=== PATIENT | male | born 1985 | race Caucasian/White ===

== ENCOUNTER 2016-10-14 11:27 | Emergency (ER) | payer MEDICARE ==
--- NOTE | 2016-10-14 11:43 | ERPHSYRPT ---
- History of Present Illness Time Seen by Provider: 10/14/16 11:34 Source: patient Exam Limitations: no limitations Physician History: The patient is a 31-year-old male brought in by ambulance from home where he complains of vomiting and severe pain in his right great toe, right ankle, and right knee. 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 He also has a significant history of gout. He states he has typical flareups like this. Today he tripled his morning dose of hydrocortisone from 20 mg to 60 mg and tripled his fludrocortisone from 0.2 mg to 0.6 mg. He normally takes naproxen for flareups in his gout but he is currently out of the naproxen. Timing/Duration: today Severity: moderate Modifying Factors: Improves With: nothing Associated Symptoms: nausea, vomiting, other (joint pain) Allergies/Adverse Reactions: No Known Drug Allergies Allergy (Verified 10/14/16 11:41) Home Medications: Fludrocortisone Acetate 0.2 mg PO QAM 12/26/14 [History] Hydrocortisone 20 mg PO QAM 12/26/14 [History] Allopurinol 100 mg [Zyloprim 100 mg] 100 mg PO DAILY 08/24/15 [History] Colchicine 0.6 mg PO DAILY 08/24/15 [History] Hx Tetanus, Diphtheria Vaccination/Date Given: Yes Hx Influenza Vaccination/Date Given: Yes Hx Pneumococcal Vaccination/Date Given: Yes - Review of Systems Constitutional: No Fever, No Chills Eyes: No Symptoms Ears, Nose, & Throat: No Symptoms Respiratory: No Cough, No Dyspnea Cardiac: No Chest Pain, No Edema, No Syncope Abdominal/Gastrointestinal: Nausea, Vomiting, No Diarrhea Genitourinary Symptoms: No Dysuria Musculoskeletal: Joint Pain, Joint Swelling Skin: No Rash Neurological: No Dizziness, No Focal Weakness, No Sensory Changes Psychological: No Symptoms Endocrine: No Symptoms Hematologic/Lymphatic: No Symptoms Immunological/Allergic: No Symptoms All Other Systems: Reviewed and Negative - Past Medical History Pertinent Past Medical History: Yes Neurological History: No Pertinent History ENT History: No Pertinent History, Other Cardiac History: No Pertinent History Respiratory History: No Pertinent History Endocrine Medical History: Adrenal Insufficiency Musculoskeletal History: No Pertinent History GI Medical History: No Pertinent History History: No Pertinent History Psycho-Social History: No Pertinent History Male Reproductive Disorders: No Pertinent History Other Medical History: PT HAS NO ADRENAL GLANDS PHEOCHROOMOCYTOMA IS ON CHRONIC STEROIDS - Past Surgical History Past Surgical History: Yes Neuro Surgical History: No Pertinent History Cardiac: No Pertinent History Respiratory: No Pertinent History Gastrointestinal: No Pertinent History Genitourinary: No Pertinent History Musculoskeletal: No Pertinent History Male Surgical History: No Pertinent History Other Surgical History: REMOVAL OF ADRENAL GLANDS 10 years old, corneal transplant 2006 ([facility]) - Social History Smoking Status: Current every day smoker How long have you smoked: 10 yrs Exposure to second hand smoke: No Drug Use: none Patient Lives Alone: Yes - Nursing Vital Signs Nursing Vital Signs: Initial Vital Signs Temperature 99.4 F Temperature Source Oral Pulse Rate 70 Respiratory Rate 18 Blood Pressure [Right Arm] 128/65 Pain Intensity 4 - Physical Exam General Appearance: moderate distress Eye Exam: PERRL/EOMI, eyes nml inspection Ears, Nose, Throat Exam: normal ENT inspection, TMs normal, pharynx normal, moist mucous membranes Neck Exam: normal inspection, non-tender, supple, full range of motion Respiratory Exam: normal breath sounds, lungs clear, No respiratory distress Cardiovascular Exam: regular rate/rhythm, normal heart sounds, normal peripheral pulses Gastrointestinal/Abdomen Exam: soft, normal bowel sounds, No tenderness, No mass Rectal Exam: not done Back Exam: normal inspection, normal range of motion, No CVA tenderness, No vertebral tenderness Extremity Exam: swelling, tenderness, other (Examination of the right upper and lower extremities reveals mild swelling of the right great toe MTP joint with significant tenderness to movement and palpation. The right ankle is significantly swollen with warmth and exquisite tenderness. The right knee is also swollen and warm with exquisite tenderness. The right wrist is mildly swollen with tenderness.) Neurologic Exam: alert, oriented x 3, cooperative, normal mood/affect, nml cerebellar function, nml station & gait, sensation nml, No motor deficits Skin Exam: normal color, warm, dry, No rash Lymphatic Exam: No adenopathy SpO2 Interpretation: normal - Course EKG Interpreted by Me: RATE, Sinus Rhythm, NORMAL AXIS, NORMAL INTERVALS, NORMAL QRS, NORMAL ST-T Ordered Tests: Active Orders 24 hr Category Date Time Status EKG-ER Only STAT Care 10/14/16 11:44 Active IV Insertion STAT Care 10/14/16 11:44 Active CBC W DIFF Stat Lab 10/14/16 12:09 Completed CMP Stat Lab 10/14/16 12:09 Completed Lactic Acid Stat Lab 10/14/16 12:09 Completed UA W/ MICROSCOPIC Stat Lab 10/14/16 14:00 Completed Medication Summary Discontinued Medications Generic Name Dose Route Start Last Admin Trade Name Braydon PRN Reason Stop Dose Admin Hydrocortisone Sodium Succinate 100 mg 10/14/16 11:46 10/14/16 11:56 Solu-Cortef 100mg IV 10/14/16 11:47 100 mg STAT ONE Administration Hydrocortisone Sodium Succinate Confirm 10/14/16 11:49 Solu-Cortef 100mg Administered 10/14/16 11:50 Dose 100 mg .ROUTE .STK-MED ONE Sodium Chloride 1,000 mls @ 999 mls/hr 10/14/16 11:44 10/14/16 11:51 Sodium Chloride 0.9% 1000 Ml IV 10/14/16 12:44 999 mls/hr .Q1H1M STA Administration Sodium Chloride Confirm 10/14/16 11:49 Sodium Chloride 0.9% 1000 Ml Administered 10/14/16 11:50 Dose 1,000 mls @ ud .ROUTE .STK-MED ONE Ketorolac Tromethamine 30 mg 10/14/16 11:46 10/14/16 11:54 Toradol 30 Mg Injection IV 10/14/16 11:47 30 mg STAT ONE Administration Ketorolac Tromethamine Confirm 10/14/16 11:49 Toradol 30 Mg Injection Administered 10/14/16 11:50 Dose 30 mg .ROUTE .STK-MED ONE Ondansetron HCl 4 mg 10/14/16 11:44 10/14/16 11:53 Zofran 4 Mg/2 Ml Vial IV 10/14/16 11:45 4 mg STAT ONE Administration Ondansetron HCl Confirm 10/14/16 11:49 Zofran 4 Mg/2 Ml Vial Administered 10/14/16 11:50 Dose 4 mg .ROUTE .STK-MED ONE Lab/Rad Data: Laboratory Result Diagrams 10/14/16 12:09 10/14/16 12:09 Laboratory Results 10/14/16 10/14/16 10/14/16 Range/Units 14:00 12:09 12:09 WBC (4.0-10.5) K/mm3 RBC (4.1-5.6) M/mm3 Hgb (12.5-18.0) gm/dl Hct (42-50) % MCV (78-100) fl MCH (26-32) pg MCHC (32-36) g/dl RDW (11.5-14.0) % Plt Count (150-450) K/mm3 MPV (6-9.5) fl Gran % (36.0-66.0) % Lymphocytes % (24.0-44.0) % Monocytes % (0.0-12.0) % Eosinophils % (0.00-5.0) % Basophils % (0.0-0.4) % Basophils # (0-0.4) Sodium 133 L (136-145) mEq/L Potassium 3.5 (3.5-5.1) mEq/L Chloride 97 L (98-107) mEq/L Carbon Dioxide 22.9 (21-32) mEq/L Anion Gap 16.2 H (5-15) MEQ/L BUN 11 (9-20) mg/dL Creatinine 1.05 (0.55-1.30) mg/dl Estimated GFR > 60 ML/MIN Glucose 109 (70-110) MG/DL Lactic Acid 0.8 (0.4-2.0) Calcium 8.6 (8.5-10.1) mg/dL Total Bilirubin 1.80 H (0.2-1.0) mg/dL AST 27 (15-37) U/L ALT 38 (12-78) U/L Alkaline Phosphatase 58 (46-116) U/L Serum Total Protein 6.6 (6.4-8.2) gm/dL Albumin 3.5 (3.4-5.0) g/dL Ur Collection Type CCMS Urine Color YELLOW (YELLOW) Urine Appearance CLEAR (CLEAR) Urine pH 6.0 (5-6) Ur Specific [place] 1.005 (1.005-1.025) Urine Protein TRACE (Negative) Urine Ketones NEGATIVE (NEGATIVE) Urine Blood NEGATIVE (0-5) Miko/ul Urine Nitrite NEGATIVE (NEGATIVE) Urine Bilirubin NEGATIVE (NEGATIVE) Urine Urobilinogen NORMAL (0-1) mg/dL Ur Leukocyte Esterase NEGATIVE (NEGATIVE) Urine Microscopic WBC 0-2 (0-5) /HPF Urine Glucose NEGATIVE (NEGATIVE) mg/dL Specimen Received 10-14-16 1436 10/14/16 Range/Units 12:09 WBC 13.9 H (4.0-10.5) K/mm3 RBC 5.34 (4.1-5.6) M/mm3 Hgb 16.7 (12.5-18.0) gm/dl Hct 45.8 (42-50) % MCV 85.8 (78-100) fl MCH 31.3 (26-32) pg MCHC 36.5 H (32-36) g/dl RDW 12.5 (11.5-14.0) % Plt Count 230 (150-450) K/mm3 MPV 10.2 H (6-9.5) fl Gran % 73.1 H (36.0-66.0) % Lymphocytes % 15.2 L (24.0-44.0) % Monocytes % 10.7 (0.0-12.0) % Eosinophils % 0.9 (0.00-5.0) % Basophils % 0.1 (0.0-0.4) % Basophils # 0.01 (0-0.4) Sodium (136-145) mEq/L Potassium (3.5-5.1) mEq/L Chloride (98-107) mEq/L Carbon Dioxide (21-32) mEq/L Anion Gap (5-15) MEQ/L BUN (9-20) mg/dL Creatinine (0.55-1.30) mg/dl Estimated GFR ML/MIN Glucose (70-110) MG/DL Lactic Acid (0.4-2.0) Calcium (8.5-10.1) mg/dL Total Bilirubin (0.2-1.0) mg/dL AST (15-37) U/L ALT (12-78) U/L Alkaline Phosphatase (46-116) U/L Serum Total Protein (6.4-8.2) gm/dL Albumin (3.4-5.0) g/dL Ur Collection Type Urine Color (YELLOW) Urine Appearance (CLEAR) Urine pH (5-6) Ur Specific [place] (1.005-1.025) Urine Protein (Negative) Urine Ketones (NEGATIVE) Urine Blood (0-5) Miko/ul Urine Nitrite (NEGATIVE) Urine Bilirubin (NEGATIVE) Urine Urobilinogen (0-1) mg/dL Ur Leukocyte Esterase (NEGATIVE) Urine Microscopic WBC (0-5) /HPF Urine Glucose (NEGATIVE) mg/dL Specimen Received - Progress Progress: improved Progress Note: 10/14/16 15:19 I discussed patient care with the patient's telecom sales consultant at [facility], Dr. Josef Bailey, who agrees with the treatment that has been given thus far. He recommends, if the patient is stable, to return home. If the patient develops any problems at home, he is to return to the ER for likely transfer to [facility] in [place]. Counseled pt/family regarding: lab results, diagnosis - Departure Time of Disposition: 15:21 Departure Disposition: Home Clinical Impression: Adrenal insufficiency, Gouty arthritis Condition: Stable Critical Care Time: No Additional Instructions: You had a flare up of your adrenal insufficiency. You tripled your dose of your regular steroid dose this morning. You were given an additional hydrocortisone 100 mg IV in the ER. You were also given Toradol 30 mg IV and IV fluids. I spoke with Dr. Bailey who recommends that you return home for a taper over the next 2 or 3 days of your increased steroid use. If the problem persists, please return to the ER. For the gouty arthritis take naproxen 500 mg twice a day for 7 days. Stay well- hydrated. Prescriptions: Naproxen 500 mg PO BID #30 tablet.
[2016-10-14] MEDS ORDERED: Sodium Chloride 0.9% 1000 ML 1,000 ML IV STA (11:44)
[2016-10-14] MEDS ORDERED: Zofran 4 MG/2 ML VIAL IV ONE (11:44)
[2016-10-14] MEDS ORDERED: TORAdol 30 mg Injection IV ONE (11:46)
[2016-10-14] MEDS ORDERED: solu-CORTEF 100MG IV ONE (11:46)
[2016-10-14] MEDS ORDERED: Zofran 4 MG/2 ML VIAL ONE (11:49)
[2016-10-14] MEDS ORDERED: TORAdol 30 mg Injection ONE (11:49)
[2016-10-14] MEDS ORDERED: solu-CORTEF 100MG ONE (11:49)
[2016-10-14] MEDS ORDERED: Sodium Chloride 0.9% 1000 ML 1,000 ML ONE (11:49)
[2016-10-14 12:15] LABS: BASOPHIL % 0.1 % (0.0-0.4); Eosinophil % 0.9 % (0.00-5.0); Granulocytes % 73.1 % (36.0-66.0); Lymphocytes % 15.2 % (24.0-44.0); Mean Cell Volume 85.8 fl (78-100); Mean Corpuscular Hemoglobin 31.3 pg (26-32); Mean Platelet Volume 10.2 fl (6-9.5); Monocytes % 10.7 % (0.0-12.0); Platelet Count 230 K/mm3 (150-450); Red Blood Count 5.34 M/mm3 (4.1-5.6); Red Cell Distribution Width 12.5 % (11.5-14.0); White Blood Count 13.9 K/mm3 (4.0-10.5)
[2016-10-14 12:39] LABS: ALBUMIN 3.5 g/dL (3.4-5.0); ALKALINE PHOSPHATASE 58 U/L (46-116); ANION GAP 16.2 MEQ/L (5-15); BLOOD UREA NITROGEN 11 mg/dL (9-20); CHLORIDE 97 mEq/L (98-107); Carbon Dioxide 22.9 mEq/L (21-32); Glucose 109 MG/DL (70-110); Potassium 3.5 mEq/L (3.5-5.1); SGOT/AST 27 U/L (15-37); SGPT/ALT 38 U/L (12-78); SODIUM 133 mEq/L (136-145); Total Protein 6.6 gm/dL (6.4-8.2)
[2016-10-14 14:37] LABS: ADD URINE CULTURE? NO (NO); Bilirubin NEGATIVE (NEGATIVE); Blood NEGATIVE Ery/ul (0-5); COMPLETE URINE MICROSCOPIC? YES; Collection Type CCMS; Glucose NEGATIVE (NEGATIVE); Leukocyte Esterase NEGATIVE (NEGATIVE); WBC 0-2 /HPF (0-5)
[2016-10-14 15:48] VITALS: O2SAT 97
[2016-10-14 16:52] VITALS: BP 111/52; PULSE 90
== END 2016-10-14 16:52 | disposition home or self-care (01) ==
LOC: ED 11:27
DX: E27.40 Unspecified adrenocortical insufficiency (principal); M10.9 Gout, unspecified
CPT/HCPCS: 36000; 36415; 80053; 81000; 83605; 85025; 93005; 96374; 96375; 99283; 99284; J1720; J1885; J2405

== ENCOUNTER 2017-04-18 06:10 | Emergency (ER) | payer MEDICARE ==
[2017-04-18] MEDS ORDERED: Hydromorphone 1 mg/ml Ampule IV ONE ×3 (06:35→09:23)
[2017-04-18] MEDS ORDERED: Zofran 4 MG/2 ML VIAL IV ONE (06:35)
[2017-04-18] MEDS ORDERED: Hydromorphone 1 mg/ml Ampule ONE ×3 (06:38→09:05)
[2017-04-18] MEDS ORDERED: Zofran 4 MG/2 ML VIAL ONE (06:38)
[2017-04-18] MEDS ORDERED: Sodium Chloride 0.9% 1000 ML 1,000 ML ONE ×2 (06:38→09:24)
--- NOTE | 2017-04-18 06:42 | ERPHSYRPT ---
- History of Present Illness Source: patient Patient Subjective Stated Complaint: Fall, Right knee pain Triage Nursing Assessment: Pt states he fell at home on causing knee pain. Pt states worsening of pain since onset, radiation from knee up into hip and right testicle. Pt denies swelling of testicle at this time. Pt is A&O X4, no distress noted, skin pwd. Method of Injury: fell Occurred: days ago Quality: constant Severity of Pain-Max: severe Severity of Pain-Current: severe Lower Extremities Pain: hip: right, knee: right Modifying Factors: Improves With: movement (WEIGHT BEARING) Associated Symptoms: unable to bear weight Hx Tetanus, Diphtheria Vaccination/Date Given: No Hx Influenza Vaccination/Date Given: No Hx Pneumococcal Vaccination/Date Given: No Immunizations Up to Date: No <CAROLYN LAY - Last Filed: 04/18/17 07:10> <CAROLYN QUIROZ - Last Filed: 04/18/17 11:13> - History of Present Illness Time Seen by Provider: 04/18/17 06:25 Physician History: PATIENT WITH HISTORY OF ADRENAL INSUFFICIENCY, 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 HAS PROGRESSIVE KNEE SWELLING, PAIN, MARKED PAIN UPON WEIGHT BEARING. ALSO COMPLAINS OF PAIN IN RIGHT GROIN AND RIGHT TESTICLE, DENIES URINARY SYMPTOMS, DYSURIA, FREQUENCY OR URGENCY. (CAROLYN LAY) Allergies/Adverse Reactions: No Known Drug Allergies Allergy (Verified 10/14/16 11:41) Home Medications: Fludrocortisone Acetate 0.2 mg PO QAM 12/26/14 [History] Allopurinol 100 mg [Zyloprim 100 mg] 100 mg PO DAILY 08/24/15 [History] Colchicine 0.6 mg PO DAILY 08/24/15 [History] - Review of Systems Constitutional: No Fever, No Chills Eyes: No Symptoms Ears, Nose, & Throat: No Symptoms Respiratory: No Cough, No Dyspnea Cardiac: No Chest Pain, No Edema, No Syncope Abdominal/Gastrointestinal: No Abdominal Pain, No Nausea, No Vomiting, No Diarrhea Genitourinary Symptoms: Testicle Pain, No Dysuria Musculoskeletal: Injury, Joint Pain, Joint Swelling, No Back Pain, No Neck Pain Skin: No Rash Neurological: No Dizziness, No Focal Weakness, No Sensory Changes Psychological: No Symptoms Endocrine: No Symptoms All Other Systems: Reviewed and Negative <CAROLYN LAY Filed: 04/18/17 07:10> - Past Medical History Pertinent Past Medical History: Yes Neurological History: No Pertinent History ENT History: No Pertinent History, Other Cardiac History: No Pertinent History Respiratory History: No Pertinent History Endocrine Medical History: Adrenal Insufficiency Musculoskeletal History: No Pertinent History GI Medical History: No Pertinent History History: No Pertinent History Psycho-Social History: No Pertinent History Male Reproductive Disorders: No Pertinent History Other Medical History: PT HAS NO ADRENAL GLANDS PHEOCHROOMOCYTOMA IS ON CHRONIC STEROIDS - Past Surgical History Past Surgical History: Yes Neuro Surgical History: No Pertinent History Cardiac: No Pertinent History Respiratory: No Pertinent History Gastrointestinal: No Pertinent History Genitourinary: No Pertinent History Musculoskeletal: No Pertinent History Male Surgical History: No Pertinent History Other Surgical History: REMOVAL OF ADRENAL GLANDS 10 years old, corneal transplant 2006 ([facility]) - Social History Smoking Status: Never smoker How long have you smoked: 10 yrs Exposure to second hand smoke: No Drug Use: none Patient Lives Alone: Yes <CAROLYN LAY Filed: 04/18/17 07:10> - Physical Exam General Appearance: mild distress Neck Exam: normal inspection Cardiovascular/Respiratory Exam: chest non-tender, normal breath sounds, regular rate/rhythm, no respiratory distress Gastrointestinal/Abdominal Exam: non-tender (SCROTUM RIGHT TESTICLE TENDER, EPIDIDYMUS TENDERNESS NO SWELLING ), soft, guarding Back Exam: normal inspection, normal range of motion Hips Exam: right: normal inspection, limited range of motion, pain (TENDERNESS RIGHT GROIN) Knees Exam: right knee: joint effusion (MARKED RIGHT KNEE EFFUSION, LIMITED RANGE OF MOTION), soft tissue tenderness (TENDERNESS OVER MEDIAL FEMORAL CONDYLE OF RIGHT KNEE), swelling (UNABLE TO EVALUATE DRAW SIGN OR JOINT LAXITY DUE TO PAIN, PULSES 2 +) DTR - Lower Extremities Exam: knee (R): 2+, knee (L): 2+, ankle (R): 2+, ankle ( L): 2+ Neuro/Tendon Exam: normal sensation, normal motor functions Mental Status Exam: alert SpO2 Interpretation: normal SpO2: 98 Oxygen Delivery: Room Air <ARGENISCAROLYN MART Filed: 04/18/17 07:10> - Nursing Vital Signs Nursing Vital Signs: Initial Vital Signs Temperature 99.5 F 04/18/17 06:10 Pulse Rate 100 H 04/18/17 06:10 Respiratory Rate 15 04/18/17 06:10 Blood Pressure 144/86 04/18/17 06:10 O2 Sat by Pulse Oximetry 98 04/18/17 06:10 Pain Scale Pain Intensity 0 Procedures <CAROLYN LAY - Last Filed: 04/18/17 07:10> <CAROLYN QUIROZ - Last Filed: 04/18/17 11:13> - Additional Procedures Progress: RIGHT KNEE ARTHROCENTESIS: Indication: r/o gout, septic arthritis Right knee prepped with betadine. Premedicated with dilaudid. 3ml local lidocaine. 18 ga needle thru medial approach with 45 ml thick yellow fluid easily obtained. Tolerated well. Fluid to lab for synovial analysis. (CAROLYN QUIROZ) - Radiology Exams right hip, pelvis, right knee X-ray Interpretation: Teleradiologist Report (large knee effusion, no fracture) - Radiology Ultrasound Exam testicle Ultrasound: Other (negative per RDMS) <CAROLYN QUIROZ - Last Filed: 04/18/17 11:13> Ordered Tests: Active Orders 24 hr Category Date Time Status Clean Catch Urine Specimen STAT Care 04/18/17 07:08 Active IV Insertion STAT Care 04/18/17 06:34 Active NPO (ED) STAT Care 04/18/17 08:16 Active Other ED Treatment STAT Care 04/18/17 09:36 Active Oxygen-ED Only NASAL CANNULA 2 lpm Care 04/18/17 09:48 Active HIP UNI (2V) INCL PEL IF DONE Stat Exams 04/18/17 07:06 Taken KNEE (3 VIEWS) Stat Exams 04/18/17 06:34 Taken TESTICLE [US] Stat Exams 04/18/17 08:45 Taken BLOOD CULTURE Stat Lab 04/18/17 06:45 Received CBC W DIFF Stat Lab 04/18/17 06:40 Completed CMP Stat Lab 04/18/17 06:40 Completed CRP, HIGH SENSITIVITY Stat Lab 04/18/17 06:40 Completed CULTURE,OTHER Routine Lab 04/18/17 09:00 Results Erythrocyte Sedimentation Rate Stat Lab 04/18/17 07:51 Completed Lactic Acid Stat Lab 04/18/17 08:56 Completed MAGNESIUM Stat Lab 04/18/17 07:53 Completed Manual Differential NC Stat Lab 04/18/17 06:40 Completed UA W/ MICROSCOPIC Stat Lab 04/18/17 09:43 Completed Uric Acid Stat Lab 04/18/17 06:40 Completed Medication Summary Generic Name Dose Route Start Last Admin Trade Name Braydon PRN Reason Stop Dose Admin Sodium Chloride 1,000 mls @ 250 mls/hr 04/18/17 06:45 04/18/17 06:41 Sodium Chloride 0.9% 1000 Ml IV 05/18/17 06:44 250 mls/hr .Q4H SEVERIANO Administration Vancomycin HCl 1.5 gm/ 500 mls @ 250 mls/hr 04/18/17 10:00 04/18/17 10:21 Dextrose/Sodium Chloride IV 04/18/17 11:59 250 mls/hr 1000 SEVERIANO Administration Dextrose/Lactated Ringer's 1,000 mls @ 100 mls/hr 04/18/17 11:00 Dextrose 5%-Lr Iv Solution 1000 Ml IV 05/18/17 10:59 .Q10H SEVERIANO Discontinued Medications Generic Name Dose Route Start Last Admin Trade Name Braydon PRN Reason Stop Dose Admin Acetaminophen 650 mg 04/18/17 08:15 04/18/17 08:45 Tylenol 325 Mg PO 04/18/17 08:16 650 mg STAT ONE Administration Acetaminophen Confirm 04/18/17 08:23 Tylenol 325 Mg Administered 04/18/17 08:24 Dose 650 mg .ROUTE .STK-MED ONE Diphenhydramine HCl 25 mg 04/18/17 07:49 04/18/17 07:56 Benadryl 50 Mg/Ml IV 04/18/17 07:50 25 mg STAT ONE Administration Diphenhydramine HCl Confirm 04/18/17 07:53 Benadryl 50 Mg/Ml Administered 04/18/17 07:54 Dose 50 mg .ROUTE .STK-MED ONE Hydrocortisone Sodium Succinate 100 mg 04/18/17 07:51 04/18/17 07:59 Solu-Cortef 100mg IV 04/18/17 07:52 100 mg STAT ONE Administration Hydrocortisone Sodium Succinate Confirm 04/18/17 07:54 Solu-Cortef 100mg Administered 04/18/17 07:55 Dose 100 mg .ROUTE .STK-MED ONE Hydromorphone HCl 1 mg 04/18/17 06:35 04/18/17 06:40 Hydromorphone 1 Mg/Ml Ampule IV 04/18/17 06:36 1 mg STAT ONE Administration Hydromorphone HCl Confirm 04/18/17 06:38 Hydromorphone 1 Mg/Ml Ampule Administered 04/18/17 06:39 Dose 1 mg .ROUTE .STK-MED ONE Hydromorphone HCl 1 mg 04/18/17 07:49 04/18/17 07:58 Hydromorphone 1 Mg/Ml Ampule IV 04/18/17 07:50 1 mg STAT ONE Administration Hydromorphone HCl Confirm 04/18/17 07:53 Hydromorphone 1 Mg/Ml Ampule Administered 04/18/17 07:54 Dose 1 mg .ROUTE .STK-MED ONE Hydromorphone HCl Confirm 04/18/17 09:05 Hydromorphone 1 Mg/Ml Ampule Administered 04/18/17 09:06 Dose 1 mg .ROUTE .STK-MED ONE Hydromorphone HCl 1 mg 04/18/17 09:23 04/18/17 09:10 Hydromorphone 1 Mg/Ml Ampule IV 04/18/17 09:24 1 mg STAT ONE Administration Ceftriaxone Sodium/Dextrose 1 g in 50 mls @ 100 mls/hr 04/18/17 09:24 09:34 Rocephin 1 Gm-D5w 50 Ml Bag IV 04/18/17 09:53 100 mls/hr STAT STA Administration Sodium Chloride 1,000 mls @ 999 mls/hr 04/18/17 09:23 04/18/17 09:34 Sodium Chloride 0.9% 1000 Ml IV 04/18/17 10:23 999 mls/hr .Q1H1M STA Administration Ceftriaxone Sodium/Dextrose Confirm 04/18/17 09:25 Rocephin 1 Gm-D5w 50 Ml Bag Administered 04/18/17 09:26 Dose 1 g in 50 mls @ ud IV .STK-MED ONE Lidocaine HCl 5 ml 04/18/17 07:50 04/18/17 08:06 Xylocaine 1% Hcl 20 Ml Mdv IJ 04/18/17 07:51 5 ml STAT ONE Administration Lidocaine HCl Confirm 04/18/17 07:55 Xylocaine 1% Hcl 20 Ml Mdv Administered 04/18/17 07:56 Dose 1 ml .ROUTE .[employer] Non-Formulary Medication 1 each 04/18/17 09:24 Pharmacy Dosing Request IJ 04/18/17 09:25 STAT ONE Ondansetron HCl 4 mg 04/18/17 06:35 04/18/17 06:41 Zofran 4 Mg/2 Ml Vial IV 04/18/17 06:36 4 mg STAT ONE Administration Ondansetron HCl Confirm 04/18/17 06:38 Zofran 4 Mg/2 Ml Vial Administered 04/18/17 06:39 Dose 4 mg .ROUTE .[employer] Lab/Rad Data: Laboratory Result Diagrams 04/18/17 06:40 04/18/17 06:40 Laboratory Results 04/18/17 04/18/17 04/18/17 Range/Units 09:43 08:56 07:53 WBC (4.0-10.5) K/mm3 RBC (4.1-5.6) M/mm3 Hgb (12.5-18.0) gm/dl Hct (42-50) % MCV (78-100) fl MCH (26-32) pg MCHC (32-36) g/dl RDW (11.5-14.0) % Plt Count (150-450) K/mm3 MPV (6-9.5) fl Segmented Neutrophils (36.-66.) % Lymphocytes (Manual) (24-44) % Monocytes (Manual) (0.0-12.0) % Eosinophils (Manual) (0.00-3.0) % Differential Comment Platelet Estimate (NORMAL) ESR (0-15) mm/hr Sodium (136-145) mEq/L Potassium (3.5-5.1) mEq/L Chloride (98-107) mEq/L Carbon Dioxide (21-32) mEq/L Anion Gap (5-15) MEQ/L BUN (9-20) mg/dL Creatinine (0.55-1.30) mg/dl Estimated GFR ML/MIN Glucose (70-110) MG/DL Lactic Acid 0.7 (0.4-2.0) Uric Acid (3.5-7.2) mg/dL Calcium (8.5-10.1) mg/dL Magnesium 1.7 L (1.8-2.4) mg/dL Total Bilirubin (0.2-1.0) mg/dL AST (15-37) U/L ALT (12-78) U/L Alkaline Phosphatase (46-116) U/L C-React Prot High Sens (0.0-3.0) mg/L Serum Total Protein (6.4-8.2) gm/dL Albumin (3.4-5.0) g/dL Ur Collection Type VOID Urine Color YELLOW (YELLOW) Urine Appearance CLEAR (CLEAR) Urine pH 7.0 (5-6) Ur Specific [place] 1.005 (1.005-1.025) Urine Protein 500 (Negative) Urine Ketones NEGATIVE (NEGATIVE) Urine Blood 5-10 (0-5) Miko/ul Urine Nitrite NEGATIVE (NEGATIVE) Urine Bilirubin NEGATIVE (NEGATIVE) Urine Urobilinogen NORMAL (0-1) mg/dL Ur Leukocyte Esterase NEGATIVE (NEGATIVE) Urine Microscopic RBC 0-2 (0-2) /HPF Ur Epithelial Cells RARE (FEW) /HPF Urine Bacteria RARE (NEGATIVE) /HPF Urine Glucose NEGATIVE (NEGATIVE) mg/dL Specimen Received 04/18/17 0943 04/18/17 04/18/17 04/18/17 Range/Units 07:51 06:40 06:40 WBC (4.0-10.5) K/mm3 RBC (4.1-5.6) M/mm3 Hgb (12.5-18.0) gm/dl Hct (42-50) % MCV (78-100) fl MCH (26-32) pg MCHC (32-36) g/dl RDW (11.5-14.0) % Plt Count (150-450) K/mm3 MPV (6-9.5) fl Segmented Neutrophils (36.-66.) % Lymphocytes (Manual) (24-44) % Monocytes (Manual) (0.0-12.0) % Eosinophils (Manual) (0.00-3.0) % Differential Comment Platelet Estimate (NORMAL) ESR 5 (0-15) mm/hr Sodium 129 L (136-145) mEq/L Potassium 3.2 L (3.5-5.1) mEq/L Chloride 93 L (98-107) mEq/L Carbon Dioxide 24.7 (21-32) mEq/L Anion Gap 14.8 (5-15) MEQ/L BUN 8 L (9-20) mg/dL Creatinine 1.20 (0.55-1.30) mg/dl Estimated GFR > 60 ML/MIN Glucose 111 H (70-110) MG/DL Lactic Acid (0.4-2.0) Uric Acid (3.5-7.2) mg/dL Calcium 8.9 (8.5-10.1) mg/dL Magnesium (1.8-2.4) mg/dL Total Bilirubin 1.50 H (0.2-1.0) mg/dL AST 30 (15-37) U/L ALT 32 (12-78) U/L Alkaline Phosphatase 58 (46-116) U/L C-React Prot High Sens 171.55 H (0.0-3.0) mg/L Serum Total Protein 7.7 (6.4-8.2) gm/dL Albumin 3.4 (3.4-5.0) g/dL Ur Collection Type Urine Color (YELLOW) Urine Appearance (CLEAR) Urine pH (5-6) Ur Specific [place] (1.005-1.025) Urine Protein (Negative) Urine Ketones (NEGATIVE) Urine Blood (0-5) Miko/ul Urine Nitrite (NEGATIVE) Urine Bilirubin (NEGATIVE) Urine Urobilinogen (0-1) mg/dL Ur Leukocyte Esterase (NEGATIVE) Urine Microscopic RBC (0-2) /HPF Ur Epithelial Cells (FEW) /HPF Urine Bacteria (NEGATIVE) /HPF Urine Glucose (NEGATIVE) mg/dL Specimen Received 04/18/17 04/18/17 Range/Units 06:40 06:40 WBC 12.9 H (4.0-10.5) K/mm3 RBC 5.69 H (4.1-5.6) M/mm3 Hgb 17.4 (12.5-18.0) gm/dl Hct 47.7 (42-50) % MCV 83.8 (78-100) fl MCH 30.5 (26-32) pg MCHC 36.5 H (32-36) g/dl RDW 12.7 (11.5-14.0) % Plt Count 251 (150-450) K/mm3 MPV 9.7 H (6-9.5) fl Segmented Neutrophils 52 (36.-66.) % Lymphocytes (Manual) 36 (24-44) % Monocytes (Manual) 10 (0.0-12.0) % Eosinophils (Manual) 2 (0.00-3.0) % Differential Comment NORMAL Platelet Estimate NORMAL (NORMAL) ESR (0-15) mm/hr Sodium (136-145) mEq/L Potassium (3.5-5.1) mEq/L Chloride (98-107) mEq/L Carbon Dioxide (21-32) mEq/L Anion Gap (5-15) MEQ/L BUN (9-20) mg/dL Creatinine (0.55-1.30) mg/dl Estimated GFR ML/MIN Glucose (70-110) MG/DL Lactic Acid (0.4-2.0) Uric Acid 8.2 H (3.5-7.2) mg/dL Calcium (8.5-10.1) mg/dL Magnesium (1.8-2.4) mg/dL Total Bilirubin (0.2-1.0) mg/dL AST (15-37) U/L ALT (12-78) U/L Alkaline Phosphatase (46-116) U/L C-React Prot High Sens (0.0-3.0) mg/L Serum Total Protein (6.4-8.2) gm/dL Albumin (3.4-5.0) g/dL Ur Collection Type Urine Color (YELLOW) Urine Appearance (CLEAR) Urine pH (5-6) Ur Specific [place] (1.005-1.025) Urine Protein (Negative) Urine Ketones (NEGATIVE) Urine Blood (0-5) Miko/ul Urine Nitrite (NEGATIVE) Urine Bilirubin (NEGATIVE) Urine Urobilinogen (0-1) mg/dL Ur Leukocyte Esterase (NEGATIVE) Urine Microscopic RBC (0-2) /HPF Ur Epithelial Cells (FEW) /HPF Urine Bacteria (NEGATIVE) /HPF Urine Glucose (NEGATIVE) mg/dL Specimen Received <CAROLYN LAY - Last Filed: 04/18/17 07:10> - Progress Counseled pt/family regarding: lab results, diagnosis, need for follow-up, rad results <CAROLYN QUIROZ - Last Filed: 04/18/17 11:13> - Progress Progress Note: 04/18/17 07:16 IV NORMAL SALINE AT 250ML/HR, ZOFRAN 4MG, DILAUDID 1MG IV 04/18/17 07:18, PATIENT CARE ENDORSED TO DR QUIROZ AT 0716 FOR DISPOSITION (CAROLYN LAY) 04/18/17 08:17 Pt was initially seen per Dr Lay. 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 He has no local FMD. He sees endocrinology in [facility]. He sees Dr Hernandez for gout. He has been on hydrocortisone, colchicine, naproxen. He fell getting out of the shower when the rail broke. He was ble to walk normally afterwards. Thursday he started having pain in the right groin, right knee. The right knee has swelling and now severe pain. No redness. No fever or chills. No neck or back pain. No LOC or head injury. No chest or abd pain. Normal urination. Some right testicular pain. No penile discharge. No new sexual partners. He had prior attempted artrhocentesis by his mail handler equipment operator remotely but no fluid obtained. PE: Awake, alert. Dry mucous membranes. Neck supple. No midline spine tenderness. Chest clear. Cor reg without murmur. Abd soft and NT. Some right inguinal tenderness. Right epidydimal tenderness with mild swelling. Right knee is markedly tender and swollen and warm. No redness or cellulitis. Limited ROM due to pain. Pulses intact. Neuro nonfocal and intact. Xrays: right knee, hip, pelvis: negative. Labs ordered. Pain meds and IVF. He now has 102 fever. Advised right knee arthrocentesis to rule out septic joint or gout. Discussed risks including infection, damage to joint, pain, bleeding and patient agrees to proceed after expressing understanding. 04/18/17 10:[address] Katharina Horne (). Will accept if ortho here. Texted and left message for Dr Newell. No response. Pt and mother request transfer to [facility]. Called [facility] one call to arrange transfer. Gram stain shows large WBC, polys. No organisms seen. Explained to pt and mother that this could be gout or septic arthritis but with fever need to presume infectious until culture and further tests. 04/18/17 11:[address] Rausch hospitalist at [facility] who accepts transfer to IP surgical after we speak with ortho director of litigation. Await ortho call. 04/18/17 11:[address] Leija who agreed to see pt as IP at [facility]. (CAROLYN QUIROZ) <CAROLYN LAY - Last Filed: 04/18/17 07:10> - Departure Time of Disposition: 11:13 Departure Disposition: Transfer ([facility] for ortho) Critical Care Time: No <CAROLYN QUIROZ - Last Filed: 04/18/17 11:13> - Departure Clinical Impression: Adrenal insufficiency, acute arthritis right knee Condition: Fair Referrals: DAMI HORNE [Primary Care Provider] -
[2017-04-18] MEDS ORDERED: Sodium Chloride 0.9% 1000 ML 1,000 ML IV SCH (06:45)
[2017-04-18 06:48] LABS: Hematocrit 47.7 % (42-50); Hemoglobin 17.4 gm/dl (12.5-18.0); Mean Cell Volume 83.8 fl (78-100); Mean Corpuscular Hgb Concent. 36.5 g/dl (32-36); Mean Platelet Volume 9.7 fl (6-9.5); Platelet Count 251 K/mm3 (150-450); Red Blood Count 5.69 M/mm3 (4.1-5.6); Red Cell Distribution Width 12.7 % (11.5-14.0); White Blood Count 12.9 K/mm3 (4.0-10.5)
[2017-04-18 06:54] LABS: Mean Corpuscular Hemoglobin 30.5 pg (26-32)
[2017-04-18 07:36] LABS: Eosinophil 2 % (0.00-3.0); Lymphocytes 36 % (24-44); Monocyte 10 % (0.0-12.0); Neutrophils 52 % (36.-66.); Platelet Estimate NORMAL (NORMAL); Total Cells Counted 100
[2017-04-18] MEDS ORDERED: BENADRYL 50 MG/ML IV ONE (07:49)
[2017-04-18 07:50] LABS: ALBUMIN 3.4 g/dL (3.4-5.0); ALKALINE PHOSPHATASE 58 U/L (46-116); ANION GAP 14.8 MEQ/L (5-15); BLOOD UREA NITROGEN 8 mg/dL (9-20); CHLORIDE 93 mEq/L (98-107); Calcium 8.9 mg/dL (8.5-10.1); Carbon Dioxide 24.7 mEq/L (21-32); EST GLOMERULAR FILTRATION RATE > 60 ML/MIN; Glucose 111 MG/DL (70-110); Potassium 3.2 mEq/L (3.5-5.1); SGOT/AST 30 U/L (15-37); SGPT/ALT 32 U/L (12-78); SODIUM 129 mEq/L (136-145); Total Protein 7.7 gm/dL (6.4-8.2)
[2017-04-18] MEDS ORDERED: XYLOCAINE 1% HCL 20 ML MDV IJ ONE (07:50)
[2017-04-18] MEDS ORDERED: solu-CORTEF 100MG IV ONE (07:51)
[2017-04-18] MEDS ORDERED: BENADRYL 50 MG/ML ONE (07:53)
[2017-04-18] MEDS ORDERED: solu-CORTEF 100MG ONE (07:54)
[2017-04-18] MEDS ORDERED: XYLOCAINE 1% HCL 20 ML MDV ONE (07:55)
[2017-04-18] MEDS ORDERED: TYLENOL 325 MG PO ONE (08:15)
[2017-04-18] MEDS ORDERED: TYLENOL 325 MG ONE (08:23)
[2017-04-18] MEDS ORDERED: Sodium Chloride 0.9% 1000 ML 1,000 ML IV STA (09:23)
[2017-04-18] MEDS ORDERED: PHARMACY DOSING REQUEST IJ ONE (09:24)
[2017-04-18] MEDS ORDERED: ROCEPHIN 1 Gm-D5w 50 ml Bag** 1 G/50 ML IVPB IV STA (09:24)
[2017-04-18] MEDS ORDERED: ROCEPHIN 1 Gm-D5w 50 ml Bag** 1 G/50 ML IVPB IV ONE (09:25)
[2017-04-18 09:36] VITALS: O2SAT 95
[2017-04-18] MEDS ORDERED: VANCOCIN 1 GM VIAL*** 1.5 GM in Dextrose 5%-1/4NS IV Soln. 500 ML 500 ML IV SCH (10:00)
[2017-04-18 10:09] LABS: Appearance CLEAR (CLEAR); Leukocyte Esterase NEGATIVE (NEGATIVE); Nitrite NEGATIVE (NEGATIVE); Protein,Urine Dip 500 (Negative); Specific Gravity 1.005 (1.005-1.025)
[2017-04-18 10:10] LABS: Bacteria RARE /HPF (NEGATIVE); Bilirubin NEGATIVE (NEGATIVE); Epithelial Cells RARE /HPF (FEW); Glucose NEGATIVE (NEGATIVE); Ketones NEGATIVE (NEGATIVE); Urobilinogen NORMAL mg/dL (0-1)
[2017-04-18] MEDS ORDERED: Dextrose 5%-Lr IV Solution 1000 ML 1,000 ML IV SCH (11:00)
[2017-04-18] MEDS ORDERED: Dextrose 5%-Lr IV Solution 1000 ML 1,000 ML IV ONE (11:21)
[2017-04-18] MEDS ORDERED: [UNRECOGNIZED DRUG - OTHER] IV ONE (11:23)
[2017-04-18] MEDS ORDERED: DEXTROSE 5% IV ONE (11:23)
[2017-04-18 13:18] VITALS: BP 113/62; PULSE 95
--- NOTE | 2017-04-18 21:11 | XRAY ---
Indication: Right hip pain following fall 2 days ago. Comparison: None AP pelvis and 2 views of the right hip demonstrates tiny bilateral superior acetabular spurring. No other bony, articular, or soft tissue abnormalities. Comment: Preliminary interpretation was made by [facility]. No discrepancy. CT or MRI was recommended to rule out occult pathology if pain persists.
--- NOTE | 2017-04-18 21:11 | XRAY ---
Indication: Pain and swelling following fall 2 days ago. Comparison: None 3 views of the right knee demonstrates minimally displaced superior lateral patellar fracture with large effusion. Mild tricompartmental degenerative changes. No other bony, articular, or soft tissue abnormalities. Comment: Preliminary interpretation was made by [facility]. Fracture not reported. Telephone report given to Dr. Lorenzo in the ER at 2103 hrs. on April 18, 2017.
--- NOTE | 2017-04-18 21:13 | XRAY ---
Indication: Right groin pain. Status post fall 2 days ago. Two-dimensional testicular sonogram performed. Comparison: None Both testicles homogeneous in echogenicity with normal color Doppler flow. Right testicle measures 3.5 x 2.2 x 4.1 cm and the left measures 3.4 x 2.0 x 5.1 cm. Left and right epididymis unremarkable. No suspicious extratesticular mass or hydrocele. Impression: Negative testicular sonogram. Comment: Preliminary report was given.
== END 2017-04-18 13:25 | disposition short-term general hospital (02) ==
LOC: ED 06:10
PROC: 0S9C3ZZ Drainage of Right Knee Joint, Percutaneous Approach (ICD-10-PCS; principal; 2017-04-18)
DX: E27.40 Unspecified adrenocortical insufficiency (principal); M17.11 Unilateral primary osteoarthritis, right knee; M25.561 Pain in right knee; M25.551 Pain in right hip; N50.811 Right testicular pain; W18.2XXS Fall in (into) shower or empty bathtub, sequela; M10.9 Gout, unspecified; Z79.52 Long term (current) use of systemic steroids
CPT/HCPCS: 20610; 36000; 36415; 73502; 73562; 76870; 80053; 81000; 83605; 83735; 84550; 85025; 85652; 86140; 87040; 87070; 87205; 87491; 87591; 89050; 89051; 89060; 96360; 96361; 96365; 96367; 96374; 96375; 96376; 99285; J0696; J1170; J1200; J1720; J2405; J3370; A9270-GY